=== PATIENT | female | born 1955 | race Caucasian/White ===

== ENCOUNTER 2016-04-22 11:29 | Observation (INO) | payer MEDICAID ==
[2016-04-22] MEDS ORDERED: ALBUTEROL SULFATE 2.5 MG/0.5 ML VIAL.NEB IH ONE ×2 (11:43→11:49)
--- OUTSIDE RECORDS SUMMARY | 2016-04-22 11:46 | XMS REPORT | Continuity of Care Document ---
:1955 Author Organization [facility] ([facility]) Address [address] [place] [address] Phone [phone] Care Team Providers Name Role Phone Quentin Martínez Primary Care Provider [phone] Source Comments This disclosure is being made pursuant to the Care Everywhere program, applicable federal and state laws, and may not contain all informaitonavailable regarding this patient.[facility] ([facility]) Active Allergies and Adverse Reactions Not on File Current Medications Not on file Active Problems Not on file Most Recent Encounters Date Type Specialty Providers Description 01/29/2016 Hospital Encounter Radiation Oncology Duarte Lopez, Chief Comp: Patient MD Reported Reason For Visit Social History Tobacco Use Types Packs/Day Years Used Date Never Assessed Plan of Care Health Maintenance Due Date Last Done Comments HCV Screening 1955 Hepatitis B Vaccine (1 of 3 - Primary Series) 1955 Tdap Vaccine 1966 Lipid Disorder Screening 1973 MMR Vaccine 1973 Td Vaccine 1973 Pneumococcal Vaccine (1 of 3 - PCV13) 1974 Cervical Cancer Screening 1985 Mammogram 1995 Colonoscopy 04/12/2005 Zoster Vaccine 2015 Influenza Vaccine: Seasonal (#1) 09/23/2015 Results from Last 3 Months Not on file
--- NOTE | 2016-04-22 11:55 | ERNOTE ---
Dyspnea - General Presenting Symptoms: shortness of breath Time Seen by Provider: 04/22/16 11:32 Source: patient Exam Limitations: no limitations - Immun/Allergies/Home Medications Immunizations: IMMUNIZATION HX Immunizations Up to Date Yes History of Influenza Vaccine Yes Hx Pneumococcal Vaccination Yes Allergies/Adverse Reactions: Allergies azithromycin Allergy (Verified 04/22/16 12:40) levofloxacin [From Levaquin] Allergy (Verified 04/22/16 12:40) morphine Allergy (Verified 04/22/16 11:41) Sulfa (Sulfonamide Antibiotics) [Sulfa(Sulfonamide Antibiotics)] Allergy ( Verified 04/22/16 11:41) Home Medications: HOME MEDICATIONS Albuterol Sulfate/Ipratropium [Duoneb 2.5-0.5MG/3ML Soln] 3 ml IH Q4H PRN [Last Taken 07/30/13] Alprazolam 0.25 mg PO BID PRN 07/30/13 [Last Taken 07/30/13] Budesonide/Formoterol Fumarate [Symbicort 160-4.5 Mcg Inhaler] 2 puff IH BID 03/10 [Last Taken Unknown] Diltiazem HCl [Diltiazem 12Hr ER] 120 mg PO DAILY 04/22/16 [Last Taken Unknown] Ipratropium/Albuterol Sulfate [Combivent Respimat Inhal [place]] 1 puff IH QID 03/10 [Last Taken Unknown] buPROPion HCL [Wellbutrin XL] 150 mg PO DAILY 04/22/16 [Last Taken Unknown] - History of Present Illness Narrative: Patient is here for shortness of breath. Symptoms started three days ago with URI symptoms. She has a productive cough with green sputum and increasing shortness of breath. She has a history of COPD and is on 3liter home O2. She also has history of 2008 , that was treated with surgery and chemo. She had a recurrence in 11/2015 that was successfully treated with radiation. Date (Duration): 04/19/16 Severity: moderate Treatment CERTIFIED MEDICAL BILLER: oxygen, albuterol Initiating event: Reports: upper resp illness. Denies: exposure to smoke Frequency of episodes: Reports: occassional episodes Modifying Factors - (Improves): Reports: albuterol, oxygen Modifying Factors (Worsens): Reports: activity, coughing Associated Symptoms-Dyspnea: Reports: cough. Denies: fever/chills Prior Treatment: Denies: currently on antibiotics Review of Systems - Review of Systems Constitutional: Absent: recent illness, fever, chills ENT: Present: nasal drainage. Absent: ear pain Respiratory: Present: See HPI, shortness of breath, cough Cardiology: Present: chest pain - congested feeling. Absent: palpitations Gastrointestinal/Abdominal: Absent: nausea, vomiting, diarrhea, abdominal pain Genitourinary: Present: no symptoms reported Musculoskeletal: Absent: muscle pain Skin: Absent: rash Neurological: Absent: headache - Patient's Past Medical History Patient History - Medical: Anxiety Patient History - Cardiac/Respiratory: Arrhythmias - tachycardia, COPD, Other Patient History - Cancer: Lung Patient History - Surgical Procedures: Cancer Surgery, Other - splenectomy Patient History - Other: None LMP (females 10-50): Menopausal - Social History Living Situations: home Psych History: No pertinent hx, Hx of Bipolar Disorder Smoking Status: Former smoker - Immunizations Immunizations Up to Date: Yes Hx Pneumococcal Vaccination: Yes History of Influenza Vaccine: Yes Physical Exam - Physical Exam General Appearance: Present: wd/wn, alert, no apparent distress Eye Exam: Normal inspection: bilateral, PERRL: bilateral Ears, Nose, Throat: Present: normal pharynx Neck: Absent: lymphadenopathy (R), lymphadenopathy (L) Respiratory: Present: lungs clear, decreased breath sounds, expiration ( prolonged), other - speaking in 7-8work sentences Cardiovascular/Chest: Present: regular rate, rhythm, no murmur Gastrointestinal/Abdominal: Present: nontender, nondistended Neurological Exam: Present: alert, oriented, normal mood/affect Skin Exam: Present: normal color, warm/dry ED Progress - Results and Orders Patient's Lab Results:: I have reviewed the patient's lab results. - Vital Signs Patient's Vital Signs:: I have reviewed the patient's vital signs. Vital Signs: Vital Signs 04/22/16 11:34 Temperature 37.1 C Pulse Rate 112 H Respiratory 22 H Rate Blood Pressure 143/86 O2 Sat by Pulse 3 L Oximetry - EKG EKG: NSR - sinustachy HR 112, nonspecific ST T wave changes - poor quality EKG read: Interp. by me - X-Ray X-Ray #1 X-Ray: chest - right middle lobe infiltrate vs infiltrate Interpretation: Reviewed by me - Progress/Reassessment Chief Complaint: Dyspnea Progress Note-Subjective: 04/22/16 12:14 feeling better after albuterol neb treatment 04/22/16 12:45 discussed result with patient, due to COPD and lung cancer patient has pneumonia severity index score of 91 (class IV) recommended admission, patient agrees patient stated that she had an allergic reaction to levaquin (tongue swelling), zithromax "just doesn't work. I always end up needing something else" patient has not been on antibiotics 'for a long time' 04/22/16 12:[address] Martínez, александр to admit for observation, start zithromax and rocephin per protocol Departure Clinical Impression: Pneumonia Qualifiers: Pneumonia type: due to unspecified organism Laterality: right Lung location: middle lobe of lung Qualified Code(s): J18.1 - Lobar pneumonia, unspecified organism - Departure Disposition: [facility] Condition: Fair Referrals: Quentin Martínez MD [Primary Care Provider] -
[2016-04-22 11:59] LABS: Hematocrit 39.3 % (37.0-47.0); Mean Cell Volume 90.6 fl (78-100); Mean Corpuscular Hgb Conc 33.1 g/dl (32-36); Mean Platelet Volume 9.2 fl (6.0-9.5); Neutrophil # 9.1 K/mm3 (1.3-6.0); Neutrophil % 77.5 % (42-75.0); Platelet Count 345 K/mm3 (150-450); Red Blood Count 4.34 M/mm3 (4.2-5.4); Red Cell Distribution Width 13.6 % (11.5-14.0); White Blood Count 11.7 K/mm3 (4.0-10.5)
[2016-04-22 12:20] LABS: Albumin * 3.6 gm/dl (3.4-5.0); Anion Gap 15.8 mmol/L (6.8-13.8); Bilirubin, Total 0.4 mg/dL (0.0-1.1); Ca. Corrected For Albumin 9.3 mg/dL (8.4-10.2); Calcium * 9.3 mg/dL (7.9-10.9); Potassium 3.8 mmol/L (3.4-4.6); Total Protein 7.7 gm/dL (6.2-8.2)
--- OUTSIDE RECORDS SUMMARY | 2016-04-22 13:05 | XMS REPORT | Continuity of Care Document ---
:1955 Author Organization [facility] ([facility]) Address [address] [place] [address] Phone [phone] Care Team Providers Name Role Phone Quentin Martínez Primary Care Provider [phone] Source Comments This disclosure is being made pursuant to the Care Everywhere program, applicable federal and state laws, and may not contain all informaitonavailable regarding this patient.[facility] ([facility]) Active Allergies and Adverse Reactions Not [...]
[2016-04-22] MEDS ORDERED: AZITHROMYCIN 250 MG TABLET PO STA (13:07)
[2016-04-22] MEDS ORDERED: AZITHROMYCIN 250 MG TABLET ONE (13:13)
[2016-04-22] MEDS ORDERED: ALBUTEROL SULFATE 2.5 MG/0.5 ML VIAL.NEB IH PRN (14:51)
[2016-04-22] MEDS ORDERED: ALBUTEROL SULFATE/IPRATROPIUM 3 ML NEBU IH ONE (14:56)
[2016-04-22] MEDS: ALBUTEROL SULFATE/IPRATROPIUM 3 ML NEBU IH SCH ×2 (15:00→18:32)
[2016-04-22] MEDS ORDERED: ALBUTEROL SULFATE/IPRATROPIUM 3 ML NEBU IH PRN (16:46)
--- NOTE | 2016-04-22 16:46 | HP ---
Chief Complaint - Chief Complaint Date of Service: 04/22/16 Time of Service: 16:34 Chief Complaint: shortness of breath History of Present Illness: Lety Barrios, is a 61-year-old white female, with previous medical history of adenocarcinoma of the lungs, COPD, anxiety and depression, Crohn's disease, who was admitted on 04-22 because of increasing shortness of breath. 3 days prior to admission she woke up with a sore throat she started coughing . 2 days prior to admission her cough became productive of greenish phlegm. She denied any fever or chills. This morning she started getting more short of breath and so she told her daughter to bring her to the emergency room. In the emergency room, her white blood cell count count was elevated at 11.7 with a left shift. Her chest x-ray showed right middle lobe infiltrates- atelectasis versus pneumonia. The patient was then admitted for further treatment. - Patient's Past Medical History Patient History - Medical: Anxiety, Depression Patient History - Cardiac/Respiratory: Arrhythmias, COPD, Other Patient History - Cancer: Lung - right lower lobe s/p resection. MARU s/p RTX Patient History - Surgical Procedures: Cancer Surgery, Other Patient History - Other: None LMP (females 10-50): Menopausal - Family History Father Family History - Medical: Mother Family History - Medical: Osteoarthritis - Social History Living Situations: home Psych History: No pertinent hx, Hx of Bipolar Disorder Smoking Status: Former smoker Have you smoked in the past 12 months: Yes Smoking Stop Date: 02/22/07 - Immunizations Immunizations Up to Date: Yes Hx Pneumococcal Vaccination: Yes History of Influenza Vaccine: Yes Review Of Systems (GEN) - Review of Systems Generalized/Overall Review: Absent: Weakness, Chills, Fever EENTM: Present: No Symptoms Reported Respiratory: Present: Cough, Shortness of Breath. Absent: Wheezing Cardiac: Absent: Chest Pain, Edema, Palpitations Abdominal: Absent: Nausea, Vomiting Genitourinary: Absent: Urgency, Frequency Neurological: Present: Anxiety Immunizations: IMMUNIZATION HX Immunizations Up to Date Yes History of Influenza Vaccine Yes Hx Pneumococcal Vaccination Yes Allergies/Adverse Reactions: Allergies Allergy/AdvReac Type Severity Reaction Status Date / Time levofloxacin [From Levaquin] Allergy Verified 04/22/16 12:40 morphine Allergy Verified 04/22/16 11:41 Sulfa (Sulfonamide Allergy Verified 04/22/16 11:41 Antibiotics) [Sulfa(Sulfonamide Antibiotics)] Home Medications: HOME MEDICATIONS Albuterol Sulfate/Ipratropium [Duoneb 2.5-0.5MG/3ML Soln] 3 ml IH Q4H PRN [Last Taken 07/30/13] Alprazolam 0.25 mg PO PRN PRN 07/30/13 [Last Taken 07/30/13] ALPRAZolam [Xanax] 0.5 mg PO HS 04/22/16 [Last Taken Unknown] Budesonide/Formoterol Fumarate [Symbicort 160-4.5 Mcg Inhaler] 2 puff IH BID 03/10 [Last Taken Unknown] Diltiazem HCl [Diltiazem 12Hr ER] 120 mg PO DAILY 04/22/16 [Last Taken Unknown] Ipratropium/Albuterol Sulfate [Combivent Respimat Inhal [place]] 1 puff IH QID 03/10 [Last Taken Unknown] buPROPion HCL [Wellbutrin XL] 150 mg PO DAILY 04/22/16 [Last Taken Unknown] Exam - Exam Vital Signs: Vital Signs - Last Taken Temp 36.7 C 04/22/16 13:10 Pulse 105 H 04/22/16 15:00 Resp 20 04/22/16 15:00 BP 147/80 04/22/16 13:10 Pulse Ox 95 04/22/16 15:00 Constitutional: Present: Alert, Oriented x3, Cooperative, Thin and frail ENT Exam: Present: hearing grossly normal Eye Exam: bilateral eye: normal inspection, PERRL, EOMI Neck: Present: supple Back Exam: Present: no CVA tenderness Breasts: Present: Exam deferred Respiratory: Present: decreased breath sounds, No rales, No wheezing Abdomen: Present: Normal bowel sounds, soft, nontender, nondistended Extremity: Present: no pedal edema, no calf tenderness Diagnostic Studies: Laboratory Results WBC 11.7 K/mm3 (4.0-10.5) H 04/22/16 11:44 RBC 4.34 M/mm3 (4.2-5.4) 04/22/16 11:44 Hgb 13.0 gm/dL (12.5-16.0) 04/22/16 11:44 Hct 39.3 % (37.0-47.0) 04/22/16 11:44 MCV 90.6 fl (78-100) 04/22/16 11:44 MCH 30.0 pg (27-31) 04/22/16 11:44 MCHC 33.1 g/dl (32-36) 04/22/16 11:44 RDW 13.6 % (11.5-14.0) 04/22/16 11:44 Plt Count 345 K/mm3 (150-450) 04/22/16 11:44 MPV 9.2 fl (6.0-9.5) 04/22/16 11:44 Immature Gran % (Auto) 0.30 % (0.001-0.429) 04/22/16 11:44 Immature Gran # (Auto) 0.04 K/mm3 (0.000-0.0310) H 04/22/16 11:44 Neutrophils % 77.5 % (42-75.0) H 04/22/16 11:44 Neutrophils % (Manual) Cancelled 04/22/16 11:44 Band Neuts % (Manual) Cancelled 04/22/16 11:44 Lymphocytes % 8.0 % (20-51) L 04/22/16 11:44 Lymphocytes % (Manual) Cancelled 04/22/16 11:44 Monocytes % 13.6 % (0.0-9) H 04/22/16 11:44 Monocytes % (Manual) Cancelled 04/22/16 11:44 Eosinophils % 0.4 % (0.0-3.0) 04/22/16 11:44 Eosinophils % (Manual) Cancelled 04/22/16 11:44 Basophils % 0.2 % (0.0-1.0) 04/22/16 11:44 Basophils % (Manual) Cancelled 04/22/16 11:44 Nucleated RBC % 0.0 k/mm3 (0-1) 04/22/16 11:44 Immature Granulocytes Cancelled 04/22/16 11:44 Neutrophils # 9.1 K/mm3 (1.3-6.0) H 04/22/16 11:44 Neutrophils # (Manual) Cancelled 04/22/16 11:44 Lymphocytes # 0.9 k/mm3 (1.5-3.5) L 04/22/16 11:44 Lymphocytes # (Manual) Cancelled 04/22/16 11:44 Monocytes # 1.6 k/mm3 (0.0-1.0) H 04/22/16 11:44 Monocytes # (Manual) Cancelled 04/22/16 11:44 Eosinophils # 0.1 k/mm3 (0.0-0.7) 04/22/16 11:44 Eosinophils # (Manual) Cancelled 04/22/16 11:44 Basophils # (Manual) Cancelled 04/22/16 11:44 Absolute Basophils 0.0 k/mm3 (0.0-0.1) 04/22/16 11:44 Nucleated RBCs Cancelled 04/22/16 11:44 Differential Comment Cancelled 04/22/16 11:44 Hypersegmented Polys Cancelled 04/22/16 11:44 Atypic/Reactive Lymphs Cancelled 04/22/16 11:44 Other Cell Type Cancelled 04/22/16 11:44 Toxic Granulation Cancelled 04/22/16 11:44 Toxic Vacuolation Cancelled 04/22/16 11:44 Dohle Bodies Cancelled 04/22/16 11:44 Platelet Estimate Cancelled 04/22/16 11:44 Giant Platelets Cancelled 04/22/16 11:44 RBC Morphology Cancelled 04/22/16 11:44 Polychromasia Cancelled 04/22/16 11:44 Hypochromasia Cancelled 04/22/16 11:44 Poikilocytosis Cancelled 04/22/16 11:44 Basophilic Stippling Cancelled 04/22/16 11:44 Anisocytosis Cancelled 04/22/16 11:44 Microcytosis Cancelled 04/22/16 11:44 Macrocytosis Cancelled 04/22/16 11:44 Spherocytes Cancelled 04/22/16 11:44 Sickle Cells Cancelled 04/22/16 11:44 Target Cells Cancelled 04/22/16 11:44 Tear Drop Cells Cancelled 04/22/16 11:44 Ovalocytes Cancelled 04/22/16 11:44 López-Denhoff Bodies Cancelled 04/22/16 11:44 Elliptocytes Cancelled 04/22/16 11:44 Rouleaux Cancelled 04/22/16 11:44 Schistocytes Cancelled 04/22/16 11:44 Morphology Comment Cancelled 04/22/16 11:44 Sodium 141 mmol/L (132-142) 04/22/16 11:51 Plasma Sodium 141 mmol/L (130-142) 04/22/16 11:51 Potassium 3.8 mmol/L (3.4-4.6) 04/22/16 11:51 Chloride 100 mmol/L (97-106) 04/22/16 11:51 Carbon Dioxide 29.0 mmol/L (24-32.6) 04/22/16 11:51 Anion Gap 15.8 mmol/L (6.8-13.8) H 04/22/16 11:51 BUN 6 mg/dL (3-23) D 04/22/16 11:51 Creatinine 0.60 mg/dL (0.4-1.4) 04/22/16 11:51 Est GFR (Non-Af Amer) 108 mL/min (60-130) 04/22/16 11:51 BUN/Creatinine Ratio 10.0 (9.0-21.6) 04/22/16 11:51 Random Glucose 98 mg/dL (70-110) 04/22/16 11:51 Calcium 9.3 mg/dL (7.9-10.9) 04/22/16 11:51 Calcium Adj for Albumin 9.3 mg/dL (8.4-10.2) 04/22/16 11:51 Total Bilirubin 0.4 mg/dL (0.0-1.1) 04/22/16 11:51 AST 16 U/L (0-48) 04/22/16 11:51 ALT 16 U/L (19-67) L 04/22/16 11:51 Alkaline Phosphatase 77 U/L (50-170) 04/22/16 11:51 B-Natriuretic Peptide 70 pg/mL (5-205) 04/22/16 11:51 Total Protein 7.7 gm/dL (6.2-8.2) 04/22/16 11:51 Albumin 3.6 gm/dl (3.4-5.0) 04/22/16 11:51 Influenza Type A Ag Negative (NEGATIVE) 04/22/16 11:51 Influenza Type B Ag Negative (NEGATIVE) 04/22/16 11:51 Assessment/Plan - Assessment/Plan (1) Pneumonia Assessment: continue with IV antibiotics. Problem: Acute Qualifiers: Pneumonia type: due to unspecified organism Laterality: right Lung location: middle lobe of lung Qualified Code(s): J18.1 - Lobar pneumonia, unspecified organism (2) COPD (chronic obstructive pulmonary disease) Assessment: continue with breathing treatments Problem: Acute Qualifiers: COPD type: emphysema Emphysema type: unspecified Qualified Code(s): J43.9 - Emphysema, unspecified (3) Lung cancer Assessment: Adenocarcinoma , RLL s/p lobectomy, with recurrence MARU s/p RTX Problem: Chronic Qualifiers: Laterality: right Lung location: lower lobe of lung Qualified Code(s): C34.31 - Malignant neoplasm of lower lobe, right bronchus or lung
[2016-04-22] MEDS: ALPRAZolam 0.5 MG TABLET PO SCH (20:25)
[2016-04-22] MEDS: FLUTICASONE/SALMETEROL 14 PUFF DISK.W.DEV IH SCH (20:26)
[2016-04-23] MEDS: ALBUTEROL SULFATE/IPRATROPIUM 3 ML NEBU IH SCH ×4 (06:20→18:07)
[2016-04-23] MEDS ORDERED: ACETAMINOPHEN 500 MG TABLET PO PRN (07:01)
[2016-04-23 08:04] LABS: Hematocrit 37.7 % (37.0-47.0); Hemoglobin 12.5 gm/dL (12.5-16.0); Mean Cell Volume 90.8 fl (78-100); Mean Corpuscular Hemoglobin 30.1 pg (27-31); Mean Corpuscular Hgb Conc 33.2 g/dl (32-36); Mean Platelet Volume 9.6 fl (6.0-9.5); Neutrophil # 8.2 K/mm3 (1.3-6.0); Neutrophil % 72.7 % (42-75.0); Platelet Count 334 K/mm3 (150-450); Red Blood Count 4.15 M/mm3 (4.2-5.4); Red Cell Distribution Width 13.7 % (11.5-14.0); White Blood Count 11.3 K/mm3 (4.0-10.5)
[2016-04-23 08:11] LABS: Anion Gap 13.7 mmol/L (6.8-13.8); BUN/Creatinine Ratio 14.3 (9.0-21.6); Calcium * 8.9 mg/dL (7.9-10.9); Carbon Dioxide 28.5 mmol/L (24-32.6); Estimated Creat Clear 104.1; Potassium 3.2 mmol/L (3.4-4.6)
--- NOTE | 2016-04-23 08:32 | PN ---
Subjective - Date and Time Seen Date: 04/23/16 Time: 08:21 Subjective Narrative: Patient visibly SOB. Sitting at bedside. Objective - Review of Systems Generalized/Overall Review: Denies: Chills, Fever EENTM: Reports: No Symptoms Reported Respiratory: Reports: Cough, Shortness of Breath, Wheezing Cardiac: Denies: Chest Pain, Edema Abdominal: Reports: Nausea, Vomiting Genitourinary Symptoms: Reports: Urgency, Hematuria Musculoskeletal Complaints: Denies: Joint Pain - Vitals Vitals: Last Vital Signs Temp 36.9 C 04/23/16 07:39 Pulse 118 H 04/23/16 07:39 Resp 27 H 04/23/16 07:39 BP 124/71 04/23/16 07:39 Pulse Ox 90 04/23/16 07:39 - Abnormal Lab Findings Abnormal Lab Findings: Abnormal Lab Results 04/23/16 04/23/16 Range/Units 07:41 07:41 WBC 11.3 H (4.0-10.5) K/mm3 RBC 4.15 L (4.2-5.4) M/mm3 MPV 9.6 H (6.0-9.5) fl Immature Gran # (Auto) 0.04 H (0.000-0.0310) K/mm3 Lymphocytes % 10.7 L (20-51) % Monocytes % 14.7 H (0.0-9) % Neutrophils # 8.2 H (1.3-6.0) K/mm3 Lymphocytes # 1.2 L (1.5-3.5) k/mm3 Monocytes # 1.7 H (0.0-1.0) k/mm3 Potassium 3.2 L (3.4-4.6) mmol/L Est GFR (Non-Af Amer) 136 H D (60-130) mL/min Random Glucose 120 H (70-110) mg/dL - Exam Constitutional: Present: Alert, Oriented x3, Moderate distress, Thin and frail ENT Exam: Present: hearing grossly normal Neck: Present: supple Breasts: Present: Exam deferred Respiratory: Present: decreased breath sounds, rales, wheezing - occasional Cardiovascular/Chest: Present: no JVD, no murmur, tachycardia Abdomen: Present: Normal bowel sounds, soft, nontender, nondistended Extremity: Present: no pedal edema, no calf tenderness Assessment/Plan - Problems/Diagnosis (1) Pneumonia Problem: Acute Qualifiers: Pneumonia type: due to unspecified organism Laterality: right Lung location: middle lobe of lung Qualified Code(s): J18.1 - Lobar pneumonia, unspecified organism Narrative: continue with IV antibioitcs. (2) COPD (chronic obstructive pulmonary disease) Problem: Acute Qualifiers: COPD type: emphysema Emphysema type: unspecified Qualified Code(s): J43.9 - Emphysema, unspecified Narrative: with exacerbation. tachypneic/tachycardic, will transfer to acute status and start IV solumedrol. will do ABG. rule out P.E. with h/o malignancy. (3) Lung cancer Problem: Chronic Qualifiers: Laterality: right Lung location: lower lobe of lung Qualified Code(s): C34.31 - Malignant neoplasm of lower lobe, right bronchus or lung
[2016-04-23] MEDS: DILTIAZEM HCL 120 MG CAP.SR.24H PO SCH (08:47)
[2016-04-23] MEDS: FLUTICASONE/SALMETEROL 14 PUFF DISK.W.DEV IH SCH ×2 (08:48→21:31)
[2016-04-23] MEDS: buPROPion HCL 150 MG TAB.SR.24H PO SCH (08:49)
[2016-04-23] MEDS: ALPRAZolam 0.25 MG TABLET PO SCH (08:51)
[2016-04-23] MEDS: ENOXAPARIN SODIUM 40 MG/0.4 ML SYRG SC SCH (09:43)
[2016-04-23] MEDS: METHYLPREDNISOLONE SOD SUCC 60 MG in WATER FOR INJ.,BACTERIOSTATIC 0 ML IV SCH ×3 (09:44→21:31)
[2016-04-23] MEDS ORDERED: POTASSIUM CHLORIDE 20 MEQ TABLET.SA PO ONE (12:33)
[2016-04-23] MEDS: AZITHROMYCIN 250 MG TABLET PO SCH (13:22)
[2016-04-23] MEDS: ALPRAZolam 0.5 MG TABLET PO SCH (21:31)
[2016-04-24] MEDS: METHYLPREDNISOLONE SOD SUCC 60 MG in WATER FOR INJ.,BACTERIOSTATIC 0 ML IV SCH ×4 (02:27→20:53)
[2016-04-24 05:26] LABS: Hematocrit 34.7 % (37.0-47.0); Hemoglobin 11.5 gm/dL (12.5-16.0); Mean Cell Volume 91.3 fl (78-100); Mean Corpuscular Hemoglobin 30.3 pg (27-31); Mean Corpuscular Hgb Conc 33.1 g/dl (32-36); Mean Platelet Volume 9.8 fl (6.0-9.5); Neutrophil # 7.7 K/mm3 (1.3-6.0); Neutrophil % 88.8 % (42-75.0); Platelet Count 336 K/mm3 (150-450); Red Cell Distribution Width 13.6 % (11.5-14.0); White Blood Count 8.7 K/mm3 (4.0-10.5)
[2016-04-24] MEDS: ALBUTEROL SULFATE/IPRATROPIUM 3 ML NEBU IH SCH ×4 (06:01→18:15)
[2016-04-24 06:06] LABS: Anion Gap 10.1 mmol/L (6.8-13.8); BUN/Creatinine Ratio 21.7 (9.0-21.6); Calcium * 9.3 mg/dL (7.9-10.9); Carbon Dioxide 31.3 mmol/L (24-32.6); Estimated Creat Clear 110.9; Potassium 4.4 mmol/L (3.4-4.6)
[2016-04-24] MEDS: FLUTICASONE/SALMETEROL 14 PUFF DISK.W.DEV IH SCH ×2 (09:40→20:54)
[2016-04-24] MEDS: ALPRAZolam 0.25 MG TABLET PO SCH (09:40)
[2016-04-24] MEDS: ENOXAPARIN SODIUM 40 MG/0.4 ML SYRG SC SCH (09:40)
[2016-04-24] MEDS: buPROPion HCL 150 MG TAB.SR.24H PO SCH (09:41)
[2016-04-24] MEDS: DILTIAZEM HCL 120 MG CAP.SR.24H PO SCH (09:41)
[2016-04-24] MEDS: AZITHROMYCIN 250 MG TABLET PO SCH (13:39)
--- NOTE | 2016-04-24 17:29 | PN ---
Subjective - Date and Time Seen Date: 04/24/16 Time: 17:18 Subjective Narrative: feels better, less short of breath but not back to baseline. On O2 at home. No sputum production. No pleuritic chest pain Objective - Review of Systems Generalized/Overall Review: Denies: Chills, Fever Respiratory: Reports: Cough, Shortness of Breath Cardiac: Denies: Edema, Palpitations - Vitals Vitals: Vital Signs Temp 37.3 C 04/24/16 14:21 Pulse 105 H 04/24/16 14:21 Resp 20 04/24/16 14:21 BP 107/66 04/24/16 14:21 Pulse Ox 3 L 04/24/16 14:21 - Abnormal Lab Findings Abnormal Lab Findings: Laboratory Tests 04/24/16 05:20 WBC 8.7 D Hgb 11.5 L Hct 34.7 L Plt Count 336 04/24/16 05:20 Plasma Sodium 142 Potassium 4.4 D Chloride 104 Carbon Dioxide 31.3 BUN 10 Creatinine 0.46 Est GFR (Non-Af Amer) 147 H Random Glucose 163 H D - EKG/Xray Findings Interpretation: Reviewed by me - COPD; RML infiltrate [04/22/16] - Exam Constitutional: Present: Middle aged, Thin and frail, Looks Older than stated age - on 3L O2 ENT Exam: Present: pharynx normal, moist mucous membranes Neck: Present: normal inspection, trachea midline Respiratory: Present: decreased breath sounds - with minimal wheezing bilaterally.. Absent: no accessory muscle use Cardiovascular/Chest: Present: regular rate, rhythm Abdomen: Present: Normal bowel sounds, soft, nontender, nondistended Extremity: Present: normal range of motion, normal inspection, no pedal edema Skin Exam: Present: warm/dry, pallor Neurologic: Present: alert, oriented x 3 Assessment/Plan Plan Narrative: 1. Right middle lobe pneumonia: Continue CTX 1 g IV daily and azithromycin 250 mg PO daily. 2. Exacerbation of COPD: Solu-Medrol 60 mg IV every 6 hours. If patient doing well, switch to prednisone 60 mg PO in AM. Continue nebulizer treatments with DuoNeb as needed. 3. Adenocarcinoma of lung: S/P segmental resection [lobectomy] of the RT lower lobe in 2007 followed by adjuvant chemotherapy. Recurrence of adenocarcinoma in LT upper lobe in 09/2015 Rxed with adjuvant chemotherapy and to be followed by PET scans[as she is a poor surgical candidate].
[2016-04-24] MEDS: ALPRAZolam 0.5 MG TABLET PO SCH (20:53)
[2016-04-25] MEDS: METHYLPREDNISOLONE SOD SUCC 60 MG in WATER FOR INJ.,BACTERIOSTATIC 0 ML IV SCH ×2 (02:46→09:22)
[2016-04-25] MEDS: ALBUTEROL SULFATE/IPRATROPIUM 3 ML NEBU IH SCH ×2 (07:09→10:20)
[2016-04-25] MEDS: FLUTICASONE/SALMETEROL 14 PUFF DISK.W.DEV IH SCH ×2 (09:22→09:24)
[2016-04-25] MEDS: ENOXAPARIN SODIUM 40 MG/0.4 ML SYRG SC SCH (09:22)
[2016-04-25] MEDS: DILTIAZEM HCL 120 MG CAP.SR.24H PO SCH (09:22)
[2016-04-25] MEDS: buPROPion HCL 150 MG TAB.SR.24H PO SCH (09:23)
[2016-04-25] MEDS: ALPRAZolam 0.25 MG TABLET PO SCH (09:24)
[2016-04-25] MEDS ORDERED: predniSONE 20 MG TABLET PO STA (09:48)
--- NOTE | 2016-04-25 10:06 | DS ---
(1) Right middle lobe pneumonia Problem: Acute Qualifiers: Pneumonia type: due to unspecified organism Qualified Code(s): J18.1 - Lobar pneumonia, unspecified organism (2) COPD (chronic obstructive pulmonary disease) Diagnosis(s): On 3 L O2 continuous Problem: Chronic Qualifiers: COPD type: emphysema Emphysema type: unspecified Qualified Code(s): J43.9 - Emphysema, unspecified (3) Adenocarcinoma of lung Diagnosis(s): S/P RT. L.L. resection and chemotherapy [2008]; LT.U.L. Radiation RX [2016]. Problem: Chronic (4) Anxiety and depression Problem: Chronic Description of Stay: DATE OF ADMISSION: 04/22/2016. DATE OF DISCHARGE: 04/25/2016. HOSPITAL COURSE:Román Barrios is a 61-year-old WF with a history of COPD on 3 L O2, Crohn's disease, adenocarcinoma of lung, BMI 17 and anxiety/depression was admitted due to increasing shortness of breath, productive cough with yellow greenish phlegm with WBC 11.7 with left shift. CXR-possible RML infiltrate/atelectasis. Influenza titers were negative. Patient was started on CTX 1 g IV daily and azithromycin daily. She was placed on nebulizer treatments. She was also started on Solu-Medrol 60 mg IV Q6H as she became dyspneic. She was switched over to oral prednisone when there was improvement in her symptoms. Labs were monitored. She was gradually tapered off bupropion ER as she stated she was unable to gain weight and will be switched over to sertraline. Patient was discharged in a stable condition on 04/25/2016 with a follow-up in with PCP. Greater than 30 minutes was spent in discharging patient, discussing plan of care, reconciliation of medications, preparation and dictating discharge summary. Procedures Performed: none Results and Findings: Laboratory Tests 04/22/16 04/23/16 04/24/16 11:44 07:41 05:20 WBC 11.7 H 11.3 H 8.7 D Hgb 13.0 12.5 11.5 L Hct 39.3 37.7 34.7 L Plt Count 345 334 336 04/22/16 04/24/16 11:51 05:20 Plasma Sodium 141 142 Potassium 3.8 4.4 D Chloride 100 104 Carbon Dioxide 29.0 31.3 BUN 6 D 10 Creatinine 0.60 0.46 Est GFR (Non-Af Amer) 108 147 Random Glucose 98 163 H D Calcium Adj for Albumin 9.3 Total Bilirubin 0.4 AST 16 ALT 16 L Alkaline Phosphatase 77 Total Protein 7.7 Albumin 3.6 04/22/16 11:51 B-Natriuretic Peptide 70 Influenza Type A Ag Negative Influenza Type B Ag Negative CXR: PA and lateral: 04/22/2016: 11:44: 1. Lateral segment right middle lobe pulmonary infiltrate versus atelectasis suggested. Correlate clinically. Recommend radiographic follow-up in 6-8 weeks to document resolution. 2. Emphysematous changes noted. 3. Bone shows degenerative changes of the spine. 4. Decrease mineralization of bone suggestive of underlying osteopenia or osteoporosis. Discharge Disposition: Home self care Disposition: Home self-care Condition: Undetermined Discharge Activity: Activity as tolerated Discharge Diet: General/regular food - with health shakes. Referrals: Quentin Martínez MD [Primary Care Provider] - Problem Oriented Discharge Instructions to Patient/Family: Community-Acquired Pneumonia, Adult, [id number] Additional Patient Instructions (free text): Resume [facility]. Please fax orders and call report upon discharge. Take 1/2 tab of Wellbutrin x 1 week then stop. Start Zoloft now 04/25. Start Vitamin D3 2000 units daily. Keep your appointment you already have with Dr. Martínez 3.13 at 1:00. Prescriptions (Any new or edited meds): Azithromycin [Zithromax] 500 mg PO DAILY #3 tab Cholecalciferol (Vitamin D3) [Vitamin D3] 2,000 unit PO DAILY #100 tab.chew Sertraline HCl [Zoloft] 50 mg PO DAILY #30 tab buPROPion HCL [Wellbutrin Xl] 150 mg PO DAILY #.1 tab.sr.24h predniSONE [Prednisone] 20 mg PO DAILY #15 tablet Complete Home Medications List: Complete Home Medication List: Alprazolam 0.25 mg PO PRN PRN 07/30/13 ALPRAZolam [Xanax] 0.5 mg PO HS 04/22/16 Budesonide/Formoterol Fumarate [Symbicort 160-4.5 Mcg Inhaler] 2 puff IH BID 03/10 Ipratropium/Albuterol Sulfate [Combivent Respimat Inhal [place]] 1 puff IH QID 03/10 Albuterol Sulfate/Ipratropium [Duoneb 2.5-0.5MG/3ML Soln] 3 ml IH QIDRT nebu Azithromycin [Zithromax] 500 mg PO DAILY #3 tab 04/25/16 Cholecalciferol (Vitamin D3) [Vitamin D3] 2,000 unit PO DAILY #100 tab.chew 06/08 Fluticasone/Salmeterol [Advair 500-50 Diskus] 1 puff IH BID disk.w.dev Sertraline HCl [Zoloft] 50 mg PO DAILY #30 tab 04/25/16 buPROPion HCL [Wellbutrin Xl] 150 mg PO DAILY #.1 tab.sr.24h 04/25/16 predniSONE [Prednisone] 20 mg PO DAILY #15 tablet 04/25/16
[2016-04-25 10:39] VITALS: BP 107/63
== END 2016-04-25 13:30 | disposition home or self-care (01) ==
LOC: ER 11:29 → MS 12:54 → OBSVTOIN 04-23 08:20 → INTOOBSV 04-23 08:20
PROVIDERS: ADMIT Internal Medicine; ATTEND Internal Medicine
DX: J18.1 Lobar pneumonia, unspecified organism (principal); J44.1 Chronic obstructive pulmonary disease with (acute) exacerbation; C34.31 Malignant neoplasm of lower lobe, right bronchus or lung; Z87.891 Personal history of nicotine dependence; Z90.2 Acquired absence of lung [part of]
CPT/HCPCS: 36415; 36600; 71020; 80048; 80053; 82803; 83880; 85025; 87040; 87400; 93005; 94640; 94760; 96365; 96372; 99284; G0378

== ENCOUNTER 2018-12-01 14:19 | Observation (INO) ==
[2018-12-01] MEDS ORDERED: ALBUTEROL SULFATE/IPRATROPIUM 3 ML NEBU IH ONE (15:18)
[2018-12-01 15:37] LABS: Hematocrit 39.1 % (37.0-47.0); Hemoglobin 12.4 gm/dL (12.5-16.0); Mean Corpuscular Hemoglobin 31.4 pg (27-31); Mean Corpuscular Hgb Conc 31.7 g/dl (32-36); Mean Platelet Volume 9.9 fl (8-12.5); Platelet Count 298 K/mm3 (150-450); Red Blood Count 3.95 M/mm3 (4.2-5.4); Red Cell Distribution Width 12.8 % (11.5-14.0); White Blood Count 20.9 K/mm3 (4.0-10.5)
[2018-12-01 15:42] LABS: Total Cells Counted 100
--- NOTE | 2018-12-01 15:43 | ERNOTE ---
Dyspnea - Date Date of Service: 12/01/18 - General Presenting Symptoms: shortness of breath, difficulty of breathing Time Seen by Provider: 12/01/18 15:11 Source: patient Exam Limitations: no limitations - Immun/Allergies/Home Medications Immunizations: IMMUNIZATION HX Immunizations Up to Date Yes History of Influenza Vaccine Yes Hx Pneumococcal Vaccination Yes Allergies/Adverse Reactions: Allergies levofloxacin [From Levaquin] Allergy (Verified 12/01/18 14:59) morphine Allergy (Verified 12/01/18 14:59) Sulfa (Sulfonamide Antibiotics) [Sulfa(Sulfonamide Antibiotics)] Allergy (Verified 12/01/18 14:59) Home Medications: HOME MEDICATIONS Albuterol Sulfate/Ipratropium [Duoneb 2.5-0.5MG/3ML Soln] 3 ml IH QIDRT nebu 04/25/16 [Last Taken Unknown] Cholecalciferol (Vitamin D3) [Vitamin D3] 2,000 unit PO DAILY #100 tab.chew 04/25/16 [Last Taken Unknown] acetaminophen 325 mg tablet 325 mg PO Q6H PRN 10/18/17 [Last Taken Unknown] albuterol sulfate HFA 90 mcg/actuation aerosol inhaler 2 puff IH Q6H PRN 10/18/17 [Last Taken Unknown] biotin 5 mg tablet 5 mg PO DAILY tab 10/18/17 [Last Taken Unknown] cetirizine 10 mg tablet 10 mg PO DAILY 10/18/17 [Last Taken Unknown] guaifenesin ER 600 mg tablet, extended release 12 hr 1,200 mg PO Q12H 10/18/17 [Last Taken Unknown] multivitamin tablet 1 tab PO DAILY 10/18/17 [Last Taken Unknown] ipratropium 20 mcg-albuterol 100 mcg/actuation mist for inhalation 1 puff IH Q6H 11/04/17 [Last Taken Unknown] codeine 10 mg-guaifenesin 100 mg/5 mL oral liquid 10 ml PO Q6H PRN #120 ml 06/15/18 [Last Taken Unknown] alprazolam 0.25 mg tablet See Rx Instructions .ROUTE .COMPLEX PRN #90 tab 11/04/18 [Last Taken Unknown] budesonide-formoterol HFA 160 mcg-4.5 mcg/actuation aerosol inhaler See Rx Instructions .ROUTE .COMPLEX #10.2 gram 11/04/18 [Last Taken Unknown] diltiazem ER (XR/XT) 120 mg capsule,extended release 24 hr, controlled 120 mg PO DAILY #30 cap 11/04/18 [Last Taken Unknown] - Pain Score Pain Score #1 Pain Score: 0 - History of Present Illness Narrative: The patient is a 63 year old female who presents for increased dyspnea, productive cough and vomiting which has been present since Wednesday. There are associated symptoms of nausea, fatigue and decreased appetite. The patient denies pain. There are no alleviating factors. There are aggravating factors of activity and oral intake. Previous treatments have included: none. The past medical history includes: asthma, COPD and lung cancer. The social history is positive for former smoker. The patient has had no ill contacts. Patient reports no ongoing treatment for lung cancer, oncology is current just monitoring for changes. Patient reports radiation therapy in 2016 was last treatment received. Patient states that on Wednesday she was notified her granddaughter was murdered and since has been having difficulty with sleep, decreased appetite with vomiting and fatigue. Patient states she feels her shortness of breath has worsened along with productive cough. Review of Systems - Review of Systems Constitutional: Present: weakness, fatigue. Absent: fever EYE: Present: no symptoms reported ENT: Present: no symptoms reported. Absent: ear pain, nasal drainage, sore throat Respiratory: Present: shortness of breath, cough, wheezing Cardiology: Present: no symptoms reported. Absent: chest pain, edema Gastrointestinal/Abdominal: Present: nausea, vomiting, eating less, drinking less. Absent: diarrhea, abdominal pain Genitourinary: Present: decreased urinary output. Absent: frequency, dysuria Musculoskeletal: Present: no symptoms reported Skin: Present: no symptoms reported. Absent: rash Neurological: Present: no symptoms reported. Absent: dizziness/light-headedness All Other Systems: All systems neg except as marked Medical History (Updated 11/02/18 @ 17:45 by Quentin Martínez MD) Neoplasm (Chronic) Onset Date: ~07/2007 Malignant; Right Lower Lobe bronchus or lung Emphysema of lung (Chronic) Onset Date: ~2004 Crohns disease (Chronic) Onset Date: Unknown COPD (chronic obstructive pulmonary disease) (Chronic) Onset Date: ~2004 Asthma (Chronic) Onset Date: ~2004 Surgical History: Surgical History (Updated 10/18/17 @ 10:01 by Crystal Lion RN) H/O tubal ligation (Resolved) Onset Date: ~1982 History of tonsillectomy (Resolved) Onset Date: Unknown As a child H/O splenectomy (Resolved) Onset Date: ~06/2004 History of lobectomy of lung (Resolved) Onset Date: ~09/2007 Right Lower Lobe History of surgery on arm (Resolved) Onset Date: ~10/1998; Plate and pin placement H/O adenoidectomy (Resolved) Onset Date: Unknown as a child H/O colonoscopy (Chronic) Onset Date: ~06/2004 Family History: Family History (Last Updated 12/01/18 @ 20:53 by Maryana Verdin RN) Father , age 65 Prostate cancer Mother Heart problem Social History: (Last Reviewed 12/01/18 @ 15:39 by COCO Reardon) Social History: adopted: No Marital status: household members: none current occupational status: disabled Highest education level completed: high school graduate Service: No Tobacco: Smoking Status: Former smoker Alcohol: alcohol intake: former Substance Use: substance use type: does not use Dietary Habits: caffeine: Yes Type: coffee Physical Exam - Physical Exam General Appearance: Present: wd/wn, alert, mild distress Head Exam: Present: normal inspection Eye Exam: Normal inspection: bilateral Neck: Present: normal inspection Respiratory: Present: accessory muscle use, decreased breath sounds Cardiovascular/Chest: Present: regular rate, rhythm, no murmur Gastrointestinal/Abdominal: Present: nontender, nondistended, soft, no organomegaly, abnormal bowel sounds - hypoactive Extremity Exam: Present: no edema Neurological Exam: Present: alert, oriented, normal mood/affect, no motor/sensory deficits Skin Exam: Present: normal color, warm/dry Progress - Date and Time Seen: Date and Time: 12/01/18 Case discussed with , patient states she is to weak and short of breath to go home. Patient remains to have accessory muscle use and dyspnea following breathing treatment. Will administer IV steroids as well as initiate antibiotics to cover for COPD exacerbation. - Results and Orders Patient's Lab Results:: I have reviewed the patient's lab results. - Vital Signs Patient's Vital Signs:: I have reviewed the patient's vital signs. Vital Signs: Vital Signs 12/01/18 14:53 Temperature 36.5 C Pulse Rate 87 Respiratory Rate 24 H Blood Pressure 119/49 O2 Sat by Pulse Oximetry 94 - EKG EKG #1 EKG: NSR, nonspecific ST T wave changes EKG read: Reviewed by me - X-Ray X-Ray #1 X-Ray: chest Interpretation: Reviewed by me X-ray Comments: IMPRESSION: 1. MARKED HYPERINFLATION WITH SCATTERED PARENCHYMAL SCARRING, WHICH IS ESSENTIALLY UNCHANGED. 2. NO DEFINABLE ACUTE CARDIOPULMONARY PROCESS. Electronically signed by Zbigniew Arrington M.D.. - Progress/Reassessment Chief Complaint: Dyspnea Departure Clinical Impression: COPD with exacerbation - Departure Disposition: Still a patient Condition: Fair
[2018-12-01] MEDS ORDERED: ONDANSETRON HCL/PF 2 MG/ML VIAL IV ONE (15:45)
[2018-12-01 15:51] LABS: ALT 16 U/L (19-67); AST 15 U/L (0-48); Albumin * 3.5 gm/dl (3.4-5.0); Alkaline Phosphatase * 94 U/L (50-170); Amylase * 20 U/L (25-115); BNP * 286 pg/mL (5-205); BUN/Creatinine Ratio 18.6 (9.0-21.6); Bilirubin, Total 0.4 mg/dL (0.0-1.1); Blood Urea Nitrogen 11 mg/dL (3-23); Calcium * 9.9 mg/dL (7.9-10.9); Carbon Dioxide 30.9 mmol/L (24-32.6); Chloride 98 mmol/L (97-106); Glucose * 137 mg/dL (70-110); Lipase 57 U/L (73-393); Potassium 3.9 mmol/L (3.4-4.6); Sodium 139 mmol/L (132-142); Troponin I Less than 0.017 ng/mL (0.00-0.10)
[2018-12-01 16:05] LABS: Band 9 % (0-2.0); Lymphocyte 5 % (20-51); Monocyte 6 % (0-9); Neutrophil 80 % (42-75); Neutrophil # 16.7 K/mm3 (1.3-6.0); Platelet Estimate Normal (NORMAL); RBC Morphology Normal (NORMAL)
[2018-12-01 16:42] LABS: Urine Bilirubin 3 mg/dl (NEGATIVE); Urine Ketone Large mg/dL (NEGATIVE); Urine Nitrite Negative (NEGATIVE); Urine Protein 30 mg/dL (NEGATIVE); Urine Specific Gravity >=1.030 SP.GR. (1.005-1.010); Urine Urobilinogen Normal (NORMAL)
[2018-12-01 16:53] LABS: Urine Appearance Clear (CLEAR); Urine Bacteria TRACE; Urine Blood 5 /ul (NEGATIVE); Urine Color Yellow; Urine RBC TRACE /hpf (0-5); Urine WBC None Seen /hpf (0-5)
[2018-12-01] MEDS ORDERED: cefTRIAXone SODIUM 1,000 MG/100 ML BAG IV ONE (16:54)
[2018-12-01] MEDS ORDERED: METHYLPREDNISOLONE SOD SUCC/PF 125 MG/2 ML VIAL IV ONE (16:54)
[2018-12-01] MEDS ORDERED: AZITHROMYCIN 250 MG TABLET PO ONE (16:54)
--- NOTE | 2018-12-01 17:50 | HP ---
Chief Complaint - Chief Complaint Date of Service: 12/01/18 Time of Service: 17:31 Chief Complaint: shortness of breath History of Present Illness: Lety Barrios is a 63-year-old white female with past medical history of 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 4 days prior to admission the patient heard that her granddaughter was murdered. She was so much in despair she started having nausea, vomiting unable to eat, unable to sleep. 2 days prior to admission she started getting more short of breath and had been coughing. She feels she has phlegm inside that needs to come out. Today the patient was more short of breath associated with cough productive of phlegm and at times wheezy and so she went to our emergency room. In the emergency room she was found to have a leukocytosis of 20 with bands of 9. Her chest x-ray showed no acute cardiopulmonary findings except for chronic changes. She says her cancer recurred in 2015 and she underwent again another range of therapy but no chemotherapy at this time. Her most recent CT scan of her chest showed that her adenocarcinoma of the leg left lung field is contained but she has a small pulmonary nodule on the right. They are just going to monitor and observe that for now as per patient. Medical History (Updated 12/01/18 @ 18:07 by Quentin Martínez MD) Neoplasm (Chronic) Onset Date: ~07/2007 Malignant; Right Lower Lobe bronchus or lung Emphysema of lung (Chronic) Onset Date: ~2004 Crohns disease (Chronic) Onset Date: Unknown COPD (chronic obstructive pulmonary disease) (Chronic) Onset Date: ~2004 Asthma (Chronic) Onset Date: ~2004 Surgical History: Surgical History (Updated 12/01/18 @ 17:50 by Quentin Martínez MD) H/O tubal ligation (Resolved) Onset Date: ~1982 History of tonsillectomy (Resolved) Onset Date: Unknown As a child H/O splenectomy (Resolved) Onset Date: ~06/2004 History of lobectomy of lung (Resolved) Onset Date: ~09/2007 Right Lower Lobe History of surgery on arm (Resolved) Onset Date: ~10/1998; Plate and pin placement H/O adenoidectomy (Resolved) Onset Date: Unknown as a child H/O colonoscopy (Chronic) Onset Date: ~06/2004 Family History: Family History (Last Reviewed 06/15/18 @ 16:37 by Misty Lees CMA) Father , age 65 No problems noted. Social History: (Last Reviewed 12/01/18 @ 15:39 by COCO Reardon) Social History: adopted: No Marital status: household members: none current occupational status: disabled Highest education level completed: high school graduate Service: No Tobacco: Smoking Status: Former smoker Alcohol: alcohol intake: former Substance Use: substance use type: does not use Dietary Habits: caffeine: Yes Type: coffee Review Of Systems (GEN) - Review of Systems Generalized/Overall Review: Present: Weakness, Fatigue. Absent: Chills, Fever EENTM: Absent: Blurred Vision Respiratory: Present: Cough, Shortness of Breath, Wheezing Cardiac: Absent: Chest Pain, Edema, Palpitations Abdominal: Present: Nausea, Vomiting Genitourinary: Absent: Urgency, Frequency Musculoskeletal: Absent: Joint Pain, Back Pain Neurological: Absent: Headache Skin: Absent: Lesions, Rash Endocrine: Absent: Intolerance to Cold, Intolerance to Heat Misc: All systems neg except as marked Immunizations: IMMUNIZATION HX Immunizations Up to Date Yes History of Influenza Vaccine Yes Hx Pneumococcal Vaccination Yes Allergies/Adverse Reactions: Allergies Allergy/AdvReac Type Severity Reaction Status Date / Time levofloxacin [From Levaquin] Allergy Verified 12/01/18 14:59 morphine Allergy Verified 12/01/18 14:59 Sulfa (Sulfonamide Allergy Verified 12/01/18 14:59 Antibiotics) [Sulfa(Sulfonamide Antibiotics)] Home Medications: HOME MEDICATIONS Albuterol Sulfate/Ipratropium [Duoneb 2.5-0.5MG/3ML Soln] 3 ml IH QIDRT nebu 04/25/16 [Last Taken Unknown] Cholecalciferol (Vitamin D3) [Vitamin D3] 2,000 unit PO DAILY #100 tab.chew 04/25/16 [Last Taken Unknown] acetaminophen 325 mg tablet 325 mg PO Q6H PRN 10/18/17 [Last Taken Unknown] albuterol sulfate HFA 90 mcg/actuation aerosol inhaler 2 puff IH Q6H PRN 10/18/17 [Last Taken Unknown] biotin 5 mg tablet 5 mg PO DAILY tab 10/18/17 [Last Taken Unknown] cetirizine 10 mg tablet 10 mg PO DAILY 10/18/17 [Last Taken Unknown] guaifenesin ER 600 mg tablet, extended release 12 hr 1,200 mg PO Q12H 10/18/17 [Last Taken Unknown] multivitamin tablet 1 tab PO DAILY 10/18/17 [Last Taken Unknown] ipratropium 20 mcg-albuterol 100 mcg/actuation mist for inhalation 1 puff IH Q6H 11/04/17 [Last Taken Unknown] codeine 10 mg-guaifenesin 100 mg/5 mL oral liquid 10 ml PO Q6H PRN #120 ml 06/15/18 [Last Taken Unknown] alprazolam 0.25 mg tablet See Rx Instructions .ROUTE .COMPLEX PRN #90 tab 11/04/18 [Last Taken Unknown] budesonide-formoterol HFA 160 mcg-4.5 mcg/actuation aerosol inhaler See Rx Instructions .ROUTE .COMPLEX #10.2 gram 11/04/18 [Last Taken Unknown] diltiazem ER (XR/XT) 120 mg capsule,extended release 24 hr, controlled 120 mg PO DAILY #30 cap 11/04/18 [Last Taken Unknown] Exam - Exam Vital Signs: Vital Signs - Last Taken Temp 36.5 C 12/01/18 14:53 Pulse 93 12/01/18 16:22 Resp 20 12/01/18 16:22 BP 119/49 12/01/18 14:53 Pulse Ox 95 12/01/18 16:17 Constitutional: Present: Alert, Oriented x3, Cooperative, Thin and frail ENT Exam: Present: hearing grossly normal Eye Exam: bilateral eye: normal inspection, PERRL, EOMI Neck: Present: supple. Absent: lymphadenopathy (R), lymphadenopathy (L) Respiratory: Present: decreased breath sounds, wheezing - occasiona fine w heezing, No rales Cardiovascular/Chest: Present: regular rate, rhythm, no gallop, no JVD Abdomen: Present: Normal bowel sounds, soft, nontender, nondistended, no rebound tenderness Extremity: Present: no pedal edema. Absent: lower extremity edema Diagnostic Studies: Abnormal Lab Results 12/01/18 12/01/18 12/01/18 Range/Units 15:25 15:25 16:38 WBC 20.9 H (4.0-10.5) K/mm3 RBC 3.95 L (4.2-5.4) M/mm3 Hgb 12.4 L (12.5-16.0) gm/dL MCH 31.4 H (27-31) pg MCHC 31.7 L (32-36) g/dl Neutrophils % (Manual) 80 H (42-75) % Band Neuts % (Manual) 9 H (0-2.0) % Lymphocytes % (Manual) 5 L (20-51) % Neutrophils # (Manual) 16.7 H (1.3-6.0) K/mm3 Lymphocytes # (Manual) 1.0 L (1.5-3.5) k/mm3 Monocytes # (Manual) 1.3 H (0.0-1.0) k/mm3 Anion Gap 14.0 H (6.8-13.8) mmol/L Random Glucose 137 H (70-110) mg/dL ALT 16 L (19-67) U/L B-Natriuretic Peptide 286 H (5-205) pg/mL Amylase 20 L (25-115) U/L Lipase 57 L (73-393) U/L Urine Protein 30 H (NEGATIVE) mg/dL Urine Blood 5 H (NEGATIVE) /ul Urine Bilirubin 3 H (NEGATIVE) mg/dl Laboratory Results WBC 20.9 K/mm3 (4.0-10.5) H 12/01/18 15:25 RBC 3.95 M/mm3 (4.2-5.4) L 12/01/18 15:25 Hgb 12.4 gm/dL (12.5-16.0) L 12/01/18 15:25 Hct 39.1 % (37.0-47.0) 12/01/18 15:25 MCV 99.0 fl (78-100) 12/01/18 15:25 MCH 31.4 pg (27-31) H 12/01/18 15:25 MCHC 31.7 g/dl (32-36) L 12/01/18 15:25 RDW 12.8 % (11.5-14.0) 12/01/18 15:25 Plt Count 298 K/mm3 (150-450) 12/01/18 15:25 MPV 9.9 fl (8-12.5) 12/01/18 15:25 80 % (42-75) H 12/01/18 15:25 Band Neuts % (Manual) 9 % (0-2.0) H 12/01/18 15:25 5 % (20-51) L 12/01/18 15:25 6 % (0-9) 12/01/18 15:25 16.7 K/mm3 (1.3-6.0) H 12/01/18 15:25 1.0 k/mm3 (1.5-3.5) L 12/01/18 15:25 1.3 k/mm3 (0.0-1.0) H 12/01/18 15:25 Normal (NORMAL) 12/01/18 15:25 RBC Morphology Normal (NORMAL) 12/01/18 15:25 Sodium 139 mmol/L (132-142) 12/01/18 15:25 140 mmol/L (130-142) 12/01/18 15:25 Potassium 3.9 mmol/L (3.4-4.6) 12/01/18 15:25 Chloride 98 mmol/L (97-106) 12/01/18 15:25 Carbon Dioxide 30.9 mmol/L (24-32.6) 12/01/18 15:25 14.0 mmol/L (6.8-13.8) H 12/01/18 15:25 BUN 11 mg/dL (3-23) 12/01/18 15:25 0.59 mg/dL (0.4-1.4) 12/01/18 15:25 Est GFR (Non-Af Amer) 109 mL/min (60-130) 12/01/18 15:25 18.6 (9.0-21.6) 12/01/18 15:25 137 mg/dL (70-110) H 12/01/18 15:25 1.4 mmol/L (0.4-2.0) 12/01/18 15:25 Calcium 9.9 mg/dL (7.9-10.9) 12/01/18 15:25 Calcium Adj for Albumin 10.0 mg/dL (8.4-10.2) 12/01/18 15:25 0.4 mg/dL (0.0-1.1) 12/01/18 15:25 AST 15 U/L (0-48) 12/01/18 15:25 ALT 16 U/L (19-67) L 12/01/18 15:25 94 U/L (50-170) 12/01/18 15:25 Less than 0.017 ng/mL (0.00-0.10) 12/01/18 15:25 B-Natriuretic Peptide 286 pg/mL (5-205) H 12/01/18 15:25 8.0 gm/dL (6.2-8.2) 12/01/18 15:25 3.5 gm/dl (3.4-5.0) 12/01/18 15:25 Amylase 20 U/L (25-115) L 12/01/18 15:25 57 U/L (73-393) L 12/01/18 15:25 Yellow 12/01/18 16:38 Clear (CLEAR) 12/01/18 16:38 6.0 pH (5.0-7.0) 12/01/18 16:38 Ur Specific [place] >=1.030 SP.GR. (1.005-1.010) 12/01/18 16:38 30 mg/dL (NEGATIVE) H 12/01/18 16:38 Negative mg/dL (NEGATIVE) 12/01/18 16:38 Large mg/dL (NEGATIVE) 12/01/18 16:38 5 /ul (NEGATIVE) H 12/01/18 16:38 Negative (NEGATIVE) 12/01/18 16:38 3 mg/dl (NEGATIVE) H 12/01/18 16:38 Negative (NEGATIVE) 12/01/18 16:38 Prot Sulfosalicylic Acd Negative mg/dL (0) 12/01/18 16:38 Normal EU/dl (NORMAL) 12/01/18 16:38 Ur Leukocyte Esterase Negative /ul (NEGATIVE) 12/01/18 16:38 Trace /hpf (0-5) 12/01/18 16:38 None seen /hpf (0-5) 12/01/18 16:38 Ur Epithelial Cells Trace /hpf (0-5) 12/01/18 16:38 Trace (NONE) 12/01/18 16:38 No culture indicated 12/01/18 16:38 Assessment/Plan - Narrative Narrative: Lety Barrios is a 63-year-old white female who was admitted for increasing shortness of breath, cough productive of phlegm, occasional wheezing likely secondary to acute COPD exacerbation probably acute bronchitis on top of acute severe emotional stress of grief. Her leukocytosis is likely due to infection r/o malignancy. 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 We will start her on breathing treatments, IV Solu-Medrol, IV Rocephin, Azithromycin. Will continue with her alprazolam for anxiety as well as her other home medications. I saw and examined the patient in the ER. - Assessment/Plan (1) COPD with exacerbation Problem: Acute (2) Complicated grief Problem: Acute (3) Leukocytosis Problem: Acute Qualifiers: Leukocytosis type: bandemia Qualified Code(s): D72.825 - Bandemia (4) Hyperlipidemia Problem: Chronic Qualifiers: Hyperlipidemia type: pure hypercholesterolemia Qualified Code(s): E78.00 - Pure hypercholesterolemia, unspecified; E78.0 - Pure hypercholesterolemia (5) Crohns disease Problem: Chronic Qualifiers: (6) Adenocarcinoma of lung Problem: Chronic Qualifiers: Laterality: left Qualified Code(s): C34.92 - Malignant neoplasm of unspecified part of left bronchus or lung
[2018-12-01] MEDS: ALBUTEROL SULFATE/IPRATROPIUM 3 ML NEBU IH SCH (18:29)
[2018-12-01] MEDS ORDERED: AZITHROMYCIN 250 MG TABLET ONE (19:14)
[2018-12-01] MEDS ORDERED: ALPRAZolam 0.25 MG TABLET PO PRN (19:56)
[2018-12-01] MEDS ORDERED: ALBUTEROL SULFATE 200 PUFF INHALER IH PRN (19:56)
[2018-12-01] MEDS ORDERED: ACETAMINOPHEN 325 MG TABLET PO PRN (19:56)
[2018-12-01] MEDS ORDERED: CODEINE PHOSPHATE/GUAIFENESIN 5 ML UDC PO PRN (20:17)
[2018-12-01] MEDS ORDERED: ALPRAZolam 0.5 MG TABLET PO PRN (20:21)
[2018-12-01] MEDS: METHYLPREDNISOLONE SOD SUCC/PF 40 MG/ML VIAL IV SCH (23:43)
[2018-12-02] MEDS: ALBUTEROL SULFATE/IPRATROPIUM 3 ML NEBU IH SCH ×5 (00:17→17:54)
[2018-12-02] MEDS: METHYLPREDNISOLONE SOD SUCC/PF 40 MG/ML VIAL IV SCH ×3 (04:23→17:54)
[2018-12-02 05:46] LABS: Hematocrit 33.8 % (37.0-47.0); Hemoglobin 10.8 gm/dL (12.5-16.0); Mean Cell Volume 98.8 fl (78-100); Mean Corpuscular Hemoglobin 31.6 pg (27-31); Mean Platelet Volume 10.3 fl (8-12.5); Neutrophil # 16.3 K/mm3 (1.3-6.0); Neutrophil % 93.6 % (42-75.0); Platelet Count 273 K/mm3 (150-450); Red Blood Count 3.42 M/mm3 (4.2-5.4); Red Cell Distribution Width 12.5 % (11.5-14.0); White Blood Count 17.4 K/mm3 (4.0-10.5)
[2018-12-02 05:59] LABS: Anion Gap 11.4 mmol/L (6.8-13.8); BUN/Creatinine Ratio 26.3 (9.0-21.6); Calcium * 9.9 mg/dL (7.9-10.9); Carbon Dioxide 32.3 mmol/L (24-32.6); Estimated Creat Clear 87.2; Potassium 4.7 mmol/L (3.4-4.6)
[2018-12-02] MEDS ORDERED: ALBUTEROL SULFATE 2.5 MG/0.5 ML VIAL.NEB IH PRN (06:49)
[2018-12-02] MEDS ORDERED: DILTIAZEM HCL 120 MG CAP.SR.24H PO SCH (09:00)
[2018-12-02] MEDS ORDERED: LORATADINE 10 MG TABLET PO SCH (09:00)
[2018-12-02] MEDS ORDERED: AZITHROMYCIN 250 MG TABLET PO SCH (09:00)
[2018-12-02] MEDS ORDERED: MULTIVITAMINS 1 CAP CAPSULE PO SCH (09:00)
[2018-12-02] MEDS ORDERED: CHOLECALCIFEROL 1,000 UNIT CAPSULE PO SCH (09:00)
--- NOTE | 2018-12-02 12:58 | DS ---
(1) COPD with exacerbation Problem: Resolved (2) Complicated grief Problem: Acute (3) Leukocytosis Problem: Acute Qualifiers: Leukocytosis type: bandemia Qualified Code(s): D72.825 - Bandemia (4) Hyperlipidemia Problem: Chronic Qualifiers: Hyperlipidemia type: pure hypercholesterolemia Qualified Code(s): E78.00 - Pure hypercholesterolemia, unspecified; E78.0 - Pure hypercholesterolemia (5) Crohns disease Problem: Chronic Qualifiers: (6) Adenocarcinoma of lung Problem: Chronic Qualifiers: Laterality: left Qualified Code(s): C34.92 - Malignant neoplasm of unspecified part of left bronchus or lung Date of Discharge:: 12/02/18 Description of Stay: Lety Barrios is a 63-year-old white female with past medical history of 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 4 days prior to admission the patient heard that her granddaughter was murdered. She was so much in despair she started having nausea, vomiting unable to eat, unable to sleep. 2 days prior to admission she started getting more short of breath and had been coughing. She feels she has phlegm inside that needs to come out. Today the patient was more short of breath associated with cough productive of phlegm and at times wheezy and so she went to our emergency room. In the emergency room she was found to have a leukocytosis of 20 with bands of 9. Her chest x-ray showed no acute cardiop ulmonary findings except for chronic changes. She says her cancer recurred in 2016 and she underwent again another course of radiotherapy but no chemotherapy this time. Her most recent CT scan of her chest 3 weeks ago showed that her adenocarcinoma of the left lung field is contained but she has a small pulmonary nodule on the right. They are just going to monitor and observe that for now as per patient. She improved clinically with IV Solu-Medrol, DuoNeb every 4 hours [id number], IV Rocephin, and azithromycin. Her white blood cell count has gone down to 17 and she is no longer is carrying bands. Her breath sounds are much clearer. She is oxygenating on her baseline at 3 to 4 L nasal cannula. She does feel so depressed due to the loss of her left one. I told her that medically she is stable to be discharged and as far as her psychological mental status I will not be able to fix it at this time. She says she is very depressed. I told her that her depression could be part of her bereavement process but could be also due to her other medical problems. She is agreeable to be started on an antidepressant/antianxiety and increase her alprazolam to 3 times a day while waiting for the beneficial effect of her medication which will likely not be kicking in another 2-4 weeks. We will discharge her on Azithromycin and low dose Prednisone as she will be starting back on her Symbicort/Duoneb anyway and her other home medications. She will follow-up with me on Wednesday and we will discuss about outpatient pulmonary rehab and will do a repeat CBC. Leukocytosis likely is infectious as it responded to antibiotics but could also be due to her recurrent malignancy. Procedures Performed: none Results and Findings: Lab Pending Results 12/01/18 15:25: WBC 20.9 H, RBC 3.95 L, Hgb 12.4 L, Hct 39.1, MCV 99.0, MCH 31.4 H, MCHC 31.7 L, RDW 12.8, Plt Count 298, MPV 9.9, Neutrophils % (Manual) 80 H, Band Neuts % (Manual) 9 H, Lymphocytes % (Manual) 5 L, Monocytes % (Manual) 6, Neutrophils # (Manual) 16.7 H, Lymphocytes # (Manual) 1.0 L, Monocytes # (Manual) 1.3 H, Platelet Estimate Normal, RBC Morphology Normal 12/01/18 15:25: Sodium 139, Plasma Sodium 140, Potassium 3.9, Chloride 98, Carbon Dioxide 30.9, Anion Gap 14.0 H, BUN 11, Creatinine 0.59, Est GFR (Non-Af Amer) 109, BUN/Creatinine Ratio 18.6, Random Glucose 137 H, Calcium 9.9, Calcium Adj for Albumin 10.0, Total Bilirubin 0.4, AST 15, ALT 16 L, Alkaline Phosphatase 94, Troponin I Less than 0.017, B-Natriuretic Peptide 286 H, Total Protein 8.0, Albumin 3.5, Amylase 20 L, Lipase 57 L 12/01/18 15:25: Lactic Acid, Venous 1.4 12/01/18 16:38: Urine Color Yellow, Urine Appearance Clear, Urine pH 6.0, Ur Specific [place] >=1.030, Urine Protein 30 H, Urine Glucose (UA) Negative, Urine Ketones Large, Urine Blood 5 H, Urine Nitrate Negative, Urine Bilirubin 3 H, Urine Ictotest Negative, Prot Sulfosalicylic Acd Negative, Urine Urobilinogen Normal, Ur Leukocyte Esterase Negative, Urine RBC Trace, Urine WBC None seen, Ur Epithelial Cells Trace, Urine Bacteria Trace, Urine Culture Comments No culture indicated 12/02/18 05:38: WBC 17.4 H, RBC 3.42 L, Hgb 10.8 L, Hct 33.8 L, MCV 98.8, MCH 31.6 H, MCHC 32.0, RDW 12.5, Plt Count 273, MPV 10.3, Immature Gran % (Auto) 0.60 H, Immature Gran # (Auto) 0.10 H, Neutrophils % 93.6 H, Lymphocytes % 3.7 L, Monocytes % 2.0, Eosinophils % 0.0, Basophils % 0.1, Nucleated RBC % 0.0, Neutrophils # 16.3 H, Lymphocytes # 0.65 L, Monocytes # 0.4, Eosinophils # 0.0, Absolute Basophils 0.0 12/02/18 05:38: Sodium 138, Plasma Sodium 139, Potassium 4.7 H D, Chloride 99, Carbon Dioxide 32.3, Anion Gap 11.4, BUN 15, Creatinine 0.57, Est GFR (Non-Af Amer) 114, BUN/Creatinine Ratio 26.3 H, Random Glucose 134 H, Calcium 9.9 Discharge Location: Home Disposition: [facility] Home Health Condition: Stable Discharge Activity: Activity as tolerated Discharge Diet: General/regular food Referrals: Quentin Martínez MD [Primary Care Provider] - Additional Patient Instructions (free text): Resume services with [facility] at discharge. Please call report and fax orders. Pulmonary rehab consult outpatient will be discussed with her follow up visit. . Follow up with PCP on Wednesday. Prescriptions (Any new or edited meds): Azithromycin 250 mg PO DAILY #7 tab Nortriptyline HCl 10 mg PO DAILY #30 cap predniSONE [Prednisone] 10 mg PO DAILY 7 Days #7 tab.ds.pk ALPRAZolam [Xanax] See Rx Instructions .ROUTE .COMPLEX PRN #90 tab PRN Reason: Anxiety Complete Home Medications List: Complete Home Medication List: Albuterol Sulfate/Ipratropium [Duoneb 2.5-0.5MG/3ML Soln] 3 ml IH QIDRT nebu 04/25/16 Cholecalciferol (Vitamin D3) [Vitamin D3] 2,000 unit PO DAILY #100 tab.chew 04/25/16 acetaminophen 325 mg tablet 325 mg PO Q6H PRN 10/18/17 albuterol sulfate HFA 90 mcg/actuation aerosol inhaler 2 puff IH Q6H PRN 10/18/17 biotin 5 mg tablet 5 mg PO DAILY tab 10/18/17 cetirizine 10 mg tablet 10 mg PO DAILY 10/18/17 guaifenesin ER 600 mg tablet, extended release 12 hr 1,200 mg PO Q12H 10/18/17 multivitamin tablet 1 tab PO DAILY 10/18/17 ipratropium 20 mcg-albuterol 100 mcg/actuation mist for inhalation 1 puff IH Q6H 11/04/17 codeine 10 mg-guaifenesin 100 mg/5 mL oral liquid 10 ml PO Q6H PRN #120 ml 06/15/18 budesonide-formoterol HFA 160 mcg-4.5 mcg/actuation aerosol inhaler See Rx Instructions .ROUTE .COMPLEX #10.2 gram 11/04/18 diltiazem ER (XR/XT) 120 mg capsule,extended release 24 hr, controlled 120 mg PO DAILY #30 cap 11/04/18 ALPRAZolam [Xanax] See Rx Instructions .ROUTE .COMPLEX PRN #90 tab 12/02/18 Azithromycin 250 mg PO DAILY #7 tab 12/02/18 Nortriptyline HCl 10 mg PO DAILY #30 cap 12/02/18 predniSONE [Prednisone] 10 mg PO DAILY 7 Days #7 tab.ds.pk 12/02/18
[2018-12-02 17:56] VITALS: BP 100/64
== END 2018-12-02 17:00 | disposition home health service (06) ==
LOC: MS 14:19 → ER 14:19 → MS 18:05
PROVIDERS: ADMIT Internal Medicine; ATTEND Internal Medicine
CPT/HCPCS: 36415; 71020; 71046; 80048; 80053; 81001; 82150; 83519; 83605; 83690; 83880; 84484; 85025; 87040; 93005; 94640; 94664; 94760; 96365; 96375; 99285; G0378; J2405